=== PATIENT | female | born 2000 | race Asian ===

== ENCOUNTER 2025-01-15 08:32 | Outpatient (AMB) | payer OTHER, SELFPAY ==
--- NOTE | 2025-01-15 08:35 | A.OFFPC_ITS ---
Vital Signs 01/15/25 08:40 Height 5 ft 4.21 in Weight 110 lb 4 oz BMI 18.8 BP 110/56 L Blood Pressure Location Rt brachial Position Sitting Pulse 69 Pulse Source Pulse Oximeter Temp 98.5 F Temp Source Oral Pulse Oximetry (%) 100 Oxygen Delivery Method Room Air Intake Visit Reasons: IT LEAD // Eczema, med review Accompanied by: Self / Same As Patient Allergies No Known Allergies Allergy (Verified 01/15/25 08:42) Tobacco use date assessed: 01/15/25 Dental Screening Dental Screen Date: 01/15/25 Did you have a dental visit in the last 12 months?: No HPI HPI Comments History of Present Illness Details History of Present Illness The patient is a 24-year-old female presenting for establishment of care and evaluation of atopic dermatitis. Atopic Dermatitis (Eczema): - Chronic condition with intermittent fl are-ups, resurgent since 2019. - Previously managed symptoms using Dupi xent and Opzelura - Recently experienced a minor infection treated with hydrocortisone? - Family history includes grandmother wi th mild eczema. Review of Systems - Dermatologic: Reports chronic eczema w ith periodic flare-ups. - HEENT: Denies asthma, eye or ear probl ems aside from using olopatadine eye drops. - Respiratory: Denies respiratory issues . - Social: Denies smoking, alcohol, or dr ug use. 10-point ROS reviewed and negative excep t as noted in HPI Past Medical History - Atopic Dermatitis (Eczema) managed wit h Dupixent and Opzelura Health Maintenance - Discussion about Pap smear; patient un certain about last screening. - Denied need for STI screenings. - Regular use of Cetirizine and olopatad ine eye drops. Physical Exam General: Well-appearing, in no acute distress. Vital signs: Within normal limits. HEENT: Normocephalic, atraumatic. PERRLA, EOMI. Conjunctiva clear, sclera anicteric. Oropharynx clear, mucous membranes moist. TMs intact bilaterally. Neck: Supple, no lymphadenopathy, no thyromegaly, no JVD or carotid bruits. Eczema noted on the neck. Cardiovascular: RRR, normal S1/S2, no murmurs, rubs, or gallops. Peripheral pulses 2+ and symmetric. No edema. Respiratory: Lungs clear to auscultation bilaterally, no wheezes, rales, or rhonchi. Normal effort. Abdomen: Soft, non-tender, non-distended. Normoactive bowel sounds. No hepatosplenomegaly, no masses. MSK: Full range of motion, no joint swelling or deformity. Normal gait. Skin: Warm, dry, intact. Eczema present on the neck and all over. No rashes, lesions, or pallor. Neuro: Alert and oriented x3. Cranial nerves II-XII intact. Strength 5/5 throughout. Sensation intact. Reflexes 2+ symmetric. Normal coordination and gait. Psych: Appropriate mood and affect. Normal judgment and insight. Plan 1. Atopic Dermatitis - Continue Dupixent and Opzelura for sym ptom management. - Dermatology referral was issued and si gned; follow up as scheduled. - Complete blood work ordered; follow-up planned in two weeks to discuss results. - Advised on the importance of non-urgen t care for chronic eczema management. Discussion Notes I discussed with the patient the nature of her atopic dermatitis and the importance of continued management with Dupixent and Opzelura. The rationale for a dermatology referral was explained, and the authorization form was provided. I emphasized the advantage of primary care over urgent care for managing chronic conditions like eczema. I outlined the intent to perform baseline blood tests to monitor overall health and arranged a follow-up visit in two weeks to review findings and plan further management. Options regarding screening tests, including STI and Pap smear, were reviewed but deferred based on the patient's current preferences. Patient was informed and verbally consented to the use of an ambient scribe for clinic note documentation during this visit. Patient Instructions - Continue taking Dupixent and Opzelura as prescribed. - Bring the signed referral form to your dermatology appointment. - Get blood work done as ordered, and ma ke sure it's completed before the next follow-up visit. - Avoid urgent care for eczema unless ab solutely necessary; contact me for issues instead. - Return in two weeks for follow up disc ussion and review of blood work. - Report any new symptoms or concerns. Total time spent caring for the patient today was 30 minutes. This includes time spent before the visit reviewing the chart, time spent documenting, and time spent reviewing laboratory results, diagnostic imaging, medications, performing a medically necessary evaluation, counseling on diagnoses, care coordination, ordering appropriate tests. [facility] Medical History (Updated 01/15/25 @ 08:46 by Sudhir Shea MD) Eczema Family History (Updated 01/15/25 @ 08:36 by Briseyda Valdes [facility]) Mother No problems noted. Father No problems noted. Social History Housing: House Patient Tobacco Use Status: Never used Tobacco service: No Current occupational status: employed Cognitive needs: No Hearing needs: No Vision needs: Yes (rx glasses) Female Reproductive History Menstrual Date of last menstrual period: 01/10/25 Questionnaire PHQ-9 Over the last 2 weeks, how often have you been bothered by any of the following problems? 1. Little interest or pleasure in doing things: not at all 2. Feeling down, depressed, or hopeless: not at all 3. Trouble falling or staying asleep, or sleeping too much: several days 4. Feeling tired or having little energy: several days 5. Poor appetite or overeating: not at all 6. Feeling bad about yourself - or that you are a failure or have let yourself or your family down: not at all 7. Trouble concentrating on things, such as reading the newspaper or watching television: not at all 8. Moving or speaking so slowly that other people could have noticed. Or the opposite - being so fidgety or restless that you have been moving around a lot more than usual: not at all 9. Thoughts that you would be better off or of hurting yourself in some way: not at all Total score: 2 Source: Developed by Drs. Beau Martinez, Orly Purdy, Pedro Alas and colleagues, with an educational mc from [employer]. Thrive Questionnaire Date Thrive assessed: 01/15/25 I am a: Patient What is your living situation today?: I have a steady place to live Within the past 12 months, did the food you bought not last and you didn't have the money to get more?: Never true Within the past 12 months, did you worry whether your food would run out before you got money to buy more?: Never true Do you have trouble paying for medicines?: No Do you have trouble getting transportation to medical appointments?: No Do you have trouble paying your heating and electricity bill?: No Do you have trouble taking care of your child, family member or friend?: No Do you have trouble with day-to-day activities such as bathing, preparing meals, shopping, managing finances, etc.?: I choose not to answer this question Are you currently unemployed and looking for a job?: No Are you interested in more education?: No Please select the resources that you would like help with: None Currently or been in a relationship where the following occur: Controlled Financially and Controlled Emotionally THRIVE Score: 2 AUDIT C Alcohol Use Questionnaire (AUDIT-C) 1. How often do you have a drink containing alcohol?: Monthly or less 2. How many drinks containing alcohol do you have on a typical day when you are drinking?: 1 or 2 3. How often do you have six or more drinks on one occasion?: Never Total Score: 1 CINDA-7 AMB Questionnaire CINDA-7 Date CINDA - 7 assessed: 01/15/25 Feeling nervous, anxious, or on edge: 1 = Several days Not being able to stop or control worryin = Not at all Worrying too much about different things: 1 = Several days Trouble relaxin = Not at all Being so restless that it is hard to sit still: 0 = Not at all Becoming easily annoyed or irritable: 2 = More than half the days Feeling afraid as if something awful might happen: 0 = Not at all Total CINDA-7 score (0-4 normal; 5-9 mild; 10-14 moderate; 15-21 severe): 4 Source: Developed by Drs. Beau Martinez, Orly Purdy, Pedro Alas and colleagues, with an educational mc from [employer]. Physical exam (Primary Care) Vital Signs: Last Vital Signs Temp 98.5 F 01/15/25 08:40 Pulse 69 01/15/25 08:40 BP 110/56 L 01/15/25 08:40 Pulse Ox 100 01/15/25 08:40 Oxygen Delivery Method Room Air 01/15/25 08:40 BMI result Body Mass Index 18.8 Tobacco/Smoking Status: Tobacco use Status Tobacco use date assessed 01/15/25 01/15/25 08:38 PHQ-9: PHQ-9 Score PHQ-9: Total score 2 01/15/25 08:38 Thrive Assessment: Date of Thrive Assessment Date Thrive assessed 01/15/25 01/15/25 08:38 Currently or been in a relationship where the following occur: Controlled Financially and Controlled Emotionally Coding Level of Care Code New Pt Level 4 (78309) Diagnoses Atopic dermatitis L20.9 Assessment & Plan Assessment & Plan (1) Atopic dermatitis: Code(s): L20.9 - Atopic dermatitis, unspecified Plan Orders: Orders Complete Blood Count Auto Diff Today Z13.9 - Encounter for screening, unspecified Hemoglobin A1c Today Z13.9 - Encounter for screening, unspecified Hepatitis C Antibody Today Z13.9 - Encounter for screening, unspecified Lipid Panel Today Z13.9 - Encounter for screening, unspecified Magnesium Today Z13.9 - Encounter for screening, unspecified Vitamin D 1,25 dihydroxy Today Z13.9 - Encounter for screening, unspecified Comprehensive Met. Panel Today Z13.9 - Encounter for screening, unspecified Hepatitis B Surface Antibody Today Z13.9 - Encounter for screening, unspecified Hepatitis B Surface Antigen Today Z13.9 - Encounter for screening, unspecified HIV Ab/Ag Today Z13.9 - Encounter for screening, unspecified UA CC w/rflx Micro + Cult Today Z13.9 - Encounter for screening, unspecified Vitamin B12 and Folate Today Z13.9 - Encounter for screening, unspecified Referrals Dermatology Referral L30.9 - Dermatitis, unspecified
--- OUTSIDE RECORDS SUMMARY | 2025-01-15 08:36 | XMS_ITS | Clinical Summary ---
Author Organization [facility] [address] [facility] [address] Address [address] [place] [address] Phone Care Team Providers Care Automatic Clipper Name Role Phone Aditi Byrne MD Primary Care Provider Allergies Active Allergy Reactions Criticality Noted Date Comments Cat Dander 02/19/2021 Dog Dander 02/19/2021 Pollen Extracts 02/19/2021 Medications dupilumab (Dupixent Syringe) 300 mg/2 mL syringe every 14 days. 12/19/2021 Active loratadine (CLARITIN) 10 mg tablet Take 1 Tablet by mouth daily for 30 days. Take each tablet in the morning 09/06/2023 Active Active Problems Problem Noted Date Diagnosed Date Allergic to cats 02/26/2020 Allergy to dogs 02/26/2020 Pruritus 02/26/2020 Eczema 08/29/2009 Immunizations Immunization Administration Dates Next Due DTP 11/30/2007, 3,08/02/2000,07/31,05/12/1999,03/12/1999 ANvJ-YVC-PHP (Pentacel) 2mo to less than 5yo 04/28/2001,11/05/1999,05/12/1999,03/12 HPV 9-valent (Gardisil) 9yo to less than 46yo 03/09/2018,12/31/2015,10/28/2015 Hepatitis B Pediatric (Enger ix B; Recombivax HB) to less than 20 yo 09/25/2002,11/05/1999,1998 Hib (HbOC) 04/28/2001, 0,05/12/1999,03/12 IPV Inactivated polio (Ipol) 6wks and older 04/28/2001,11/05/1999,05/12/1999,03/12 Influenza Quadravalent, MDCK , 0.5ml, preservative free (Flucelvax) 6mo and older 06/09/2023,02/19/2021,03/09/2018 Influenza trivalent, 0.5mL, preservative free (Fluarix; FluLaval; Fluzone) ages 6mo and older (Afluria) 3 years and older 2023 Influenza trivalent, with pr eservative (Fluzone; Afluria) 6mo and older 2023 MMR, measles mumps and rubel la Live (Priorix; M-M-R II) 12mo and older 11/26/2008,04/28/2001 Meningococcal MCV4P 03/16/2018,07/18/2012 Moderna SARS-CoV-2 COVID-19, mRNA, LNP-S, preservative free 08/27/2020,07/30/2020 PPD Test 07/18/2012 Tdap Tetanus diptheria acell ular pertussis (Boostrix; Adacel) 7yo and older 02/19/2021,07/18/2010 Varicella live (Varivax) 12m o and older 07/18/2012,09/25/2002 Surgical History Surgery Date Site/Laterality Comments WISDOM TOOTH EXTRACTION PROCEDURE: HISTORICAL WISDOM TEETH EXTRACTION Medical History Medical History Date Comments Eczema 08/29/2009 DX:Eczema Family History Medical History Relation Name Comments Asthma Brother 1 No Known Problems Brother 2 Other: work accident Father No Known Problems Maternal Grandfather Cataracts Maternal Grandmother Diabetes Maternal Grandmother Hypertension Maternal Grandmother No Known Problems Paternal Grandfather No Known Problems Paternal Grandmother No Known Problems Sister Blindness Neg Hx Breast cancer Neg Hx Colon cancer Neg Hx Macular degeneration Neg Hx Ovarian cancer Neg Hx Strabismus Neg Hx Relation Name Status Comments Brother 1 Alive Brother 2 Alive Father Maternal Grandfather Maternal Grandmother Alive Mother Alive Paternal Grandfather Paternal Grandmother Sister Alive Social History Tobacco Use Types Packs/Day Years Used Date Smoking Tobacco: Never Smokeless Tobacco: Never Tobacco Cessation:Counseling Given: Not Answered Alcohol Use Standard Drinks/Week Comments Yes 0 (1 standard drink = 0.6 oz pur e alcohol) Comments No Sex and Gender Information Value Date Recorded Sex Assigned at Not on file Legal Sex Female 1:42 AM EST Gender Identity Not on file Sexual Orientation Not on file Obstetrics History Last Filed Vital Signs Vital Sign Reading Time Taken Comments Blood Pressure 107/60 08/08/2024 2:50 PM EDT Pulse 73 08/08/2024 2:50 PM EDT Temperature 36.2 C (97.2 F) 08/08/2024 2:50 PM EDT Respiratory Rate - - Oxygen Saturation - - Inhaled Oxygen Concentration - - Weight 51.3 kg (113 lb) 08/08/2024 2:50 PM EDT Height 157.5 cm (5' 2 ) 08/08/2024 2:50 PM EDT Body Mass Index 20.67 08/08/2024 2:50 PM EDT Plan of Treatment Upcoming Encounters Date Type Department Care Team (Late st Contact Info) Description 08/09/2025 9:00 AM EDT Office Visit Adult Medicine - [address] [id number] Aditi Byrne MD [address] [place] [address] Health Maintenance Due Date Last Done Comments HIV Screening 03/14/2022 Hepatitis C Screening 03/14/2022 Social Influencers of Health Screening 03/14/2022 Depression Screening 04/05/2024 COVID-19 Vaccine ( season) 2024 04/17/2021, 08/27/2020, 07/30/2020 Influenza Vaccine (#1) 2024 , 2023, 06/09/2023, Additional history exists Cervical Cancer Screening: Pap Smear 04/21/2025 04/21/2022, 04/21/2022 Cholesterol Screening (Lipid Panel) 08/08/2029 08/08/2024, 06/09/2023 DTaP,Tdap,and Td Vaccines (8 - Td or Tdap) 02/19/2031 02/19/2021, 07/18/2010, 11/30/2007, Additional history exists RSV Immunization Adult Patients (1 - 1-dose 75+ series) 2073 HIB Vaccines Completed 04/28/2001, 04/06, 11/05/1999, Additional history exists IPV Vaccines Completed 04/28/2001, 04/06, 11/05/1999, Additional history exists Hepatitis B Vaccines Completed 09/25/2002, 11/05/1999, 1998 MMR Vaccines Completed 11/26/2008, 04/28/2001 Varicella Vaccines Completed 07/18/2012, 09/25/2002 Gonorrhea/Chlamydia Screening Discontinued 02/18/2016 HPV Vaccines Completed 03/09/2018, 12/05, 10/28/2015 Meningococcal ACWY Vaccine Aged Out 03/16/2018, No longer eligible based on patient's age to complete this topic Hepatitis A Vaccines Aged Out No long er eligible based on patient's age to complete this topic Meningococcal B Vaccine Aged Out No l onger eligible based on patient's age to complete this topic Pneumococcal Vaccine: Pediatrics (0 to 5 Years) and At-Risk Patients (6 to 49 Years) Aged Out No longer eligible based on patient's age to complete this topic RSV Immunization Patients Under 20 months Aged Out No longer eligible based on patient's age to complete this topic Procedures Procedure Name Priority Date/Time Associated Diagnosis Comments LIPID PANEL WITH REFLEX TO DIRECT LDL Routine 08/08/2024 3:29 PM EDT Adult general medical examination HM PAP SMEAR Routine 04/21/2022 HM GONORRHEA/CHLAMYDIA SCRREENING Routine 02/18/2016 from Last 3 Months or Most Recently Relevant to Health Maintenance Results * Lipid panel with reflex to direct LDL (08/08/2024 3:29 PM EDT) Cholesterol 153 0 - 200 mg/dL LAB CHEMISTRY METHOD 08/08/2024 6:06 PM EDT [facility] Triglycerides 130 0 - 150 mg/dL LAB CHEMISTRY METHOD 08/08/2024 6:06 PM EDT [facility] HDL 51 >=40 mg/dL LAB CHEMISTRY METHOD 08/08/2024 6:06 PM EDT [facility] LDL Calculated 76 0 - 100 mg/dL LAB CHEMISTRY METHOD 08/08/2024 6:06 PM EDT [facility] VLDL Cholesterol Jamison 26 mg/dL LAB CHEMISTRY METHOD 08/08/2024 6:06 PM EDT [facility] Non HDL Chol. (LDL+VLDL) 102 <145 mg/dL LAB CHEMISTRY METHOD 08/08/2024 6:06 PM EDT [facility] Chol/HDL Ratio 3.0 0.0 - 4.4 LAB CHEMISTRY METHOD 08/08/2024 6:06 PM EDT [facility] Blood Venous blood specimen / Unknown Venipuncture / Unknown 08/08/2024 3:29 PM EDT 08/08/2024 3:29 PM EDT Jonel MANCINI LAB BLOOD ORDERABLES Final Re sult [facility] [address] [place] [address], * Pap Smear (04/21/2022) Pap smear NEGATIVE, ABSTRACTED Historical Provider HEALTH MAINTENANCE Final Result * Gonorrhea/Chlamydia Screening (02/18/2016) Gonorrhea/Chla mydia Screening ABSTRACTED Historical Provider HEALTH MAINTENANCE Final Result from Last 3 Months or Most Recently Relevant to Health Maintenance Insurance [facility] [employer] Care Teams Automatic Clipper Relationship Specialty Start Date End Date Aditi Byrne MD PCP - General 03/18/22
[2025-01-15 08:40] VITALS: BP 110/56; PULSE 69; TEMP 36.9; O2SAT 100; BMI 18.8
== END 2025-01-15 08:57 | disposition home or self-care (01) ==
LOC: HO.HMCFMS 08:33
PROVIDERS: PCP Student in an Organized Health Care Education/Training Program; Visit Provider Student in an Organized Health Care Education/Training Program
DX: L20.9 Atopic dermatitis, unspecified (principal)